=== PATIENT | male | born 1960 | race African-American/Black ===

== ENCOUNTER 2023-05-14 19:49 | Inpatient (IN) | payer OTHER ==
[2023-05-14 20:42] VITALS: BMI 21.1
[2023-05-14] MEDS ORDERED: BENZOCAINE/MENTHOL (CHLORASEPTIC ) LOZENGE MM PRN (23:00)
[2023-05-14] MEDS ORDERED: BENZONATATE 200 MG CAPSULE PO PRN (23:00)
[2023-05-14] MEDS ORDERED: BISMUTH SUBSALICYLATE 524 MG/30 ML PO PRN (23:00)
[2023-05-14] MEDS ORDERED: POLYETHYLENE GLYCOL (HEALTHYLAX) 3350 17 GM PACKET PO PRN (23:00)
[2023-05-14] MEDS ORDERED: ACETAMINOPHEN 325 MG TABLET (FP) PO PRN (23:00)
[2023-05-14] MEDS ORDERED: ONDANSETRON *ODT* 4 MG TABLET SL PRN (23:00)
[2023-05-14] MEDS ORDERED: NALOXONE HCL 0.4 MG/ML VIAL IM PRN ×2 (23:00→23:04)
[2023-05-14] MEDS ORDERED: IBUPROFEN 400 MG TABLET (FP) PO PRN (23:00)
[2023-05-14] MEDS ORDERED: guaiFENesin 600 MG TABLET.ER (FP) PO PRN (23:00)
[2023-05-14] MEDS ORDERED: DICYCLOMINE HCL 10 MG CAPSULE PO PRN (23:00)
[2023-05-14] MEDS ORDERED: NALOXONE HCL (KLOXXADO) 8 MG SPRAY NS PRN ×2 (23:00→23:04)
[2023-05-14] MEDS ORDERED: MAGNESIUM HYDROX 2400MG/30ML ORAL SUSPENSION 30 ML CUP PO PRN (23:00)
[2023-05-14] MEDS ORDERED: MAG HYDROX/AL HYDROX/SIMETH 30 ML UNIT-DOSE CUP PO PRN (23:00)
[2023-05-14] MEDS ORDERED: LOPERAMIDE HCL 2 MG CAPSULE PO PRN (23:00)
[2023-05-15] MEDS: INSULIN SLIDING SCALE (NOVOLOG) 1 VIAL SQ SCH ×2 (07:41→16:52)
[2023-05-15] MEDS: BACITRACIN ZINC 15 GM TUBE TOPICAL OINTMENT TP SCH ×2 (09:33→22:33)
[2023-05-15] MEDS: PRENATAL VITAMINS W/ FOLIC ACID TABLET (FP) PO SCH (09:33)
[2023-05-15] MEDS: hydrOXYzine PAMOATE 25 MG CAPSULE (FP) PO PRN (09:33)
[2023-05-15 10:46] LABS: CHLORIDE 107 mmol/L (98-107); POTASSIUM 4.4 mmol/L (3.5-5.1); SODIUM 140 mmol/L (136-145)
[2023-05-15 10:50] LABS: HEMATOCRIT 35.3 % (35.4-49); HEMOGLOBIN 11.1 GM/dL (11.7-16.9); MCH 23.1 pg (25.7-33.7); MCHC 31.5 g/dl (32.0-35.9); MEAN CELL VOLUME 73.5 fl (80-96); MEAN PLT VOLUME 8.7 fl (7.5-11.1); PLATELET COUNT 251 10^3/uL (134-434); RDW 17.3 % (11.9-15.9); WHITE BLOOD COUNT 2.6 K/mm3 (4.0-10.0)
[2023-05-15 10:51] LABS: ALBUMIN 2.6 g/dl (3.4-5.0); ANION GAP 3 mmol/L (4-13); BLOOD UREA NITROGEN 21.9 mg/dL (7-18); CO2 30 mmol/L (21-32)
[2023-05-15 10:53] LABS: CALCIUM 8.2 mg/dL (8.5-10.1)
[2023-05-15 10:54] LABS: CREATININE 1.1 mg/dL (0.55-1.3); SGOT/AST 43 U/L (15-37); SGPT/ALT 23 U/L (13-61)
[2023-05-15 10:56] LABS: BILIRUBIN,TOTAL 0.3 mg/dL (0.2-1)
[2023-05-15 10:57] LABS: ALK PHOS 63 U/L (45-117)
[2023-05-15 11:00] LABS: GLUCOSE,RANDOM 106 mg/dL (74-106)
[2023-05-15] MEDS ORDERED: cloNIDine HCL 0.1 MG TABLET PO PRN (12:42)
[2023-05-15] MEDS ORDERED: methaDONE HCL 10 MG TABLET (FOR DETOX USE ONLY) PO ONE (13:15)
[2023-05-15] MEDS ORDERED: diazePAM 5 MG TABLET PO PRN (13:35)
[2023-05-15] MEDS: THIAMINE HCL 100 MG TABLET (FP) PO SCH (22:28)
[2023-05-15] MEDS: PHENobarbital 30 MG TABLET PO SCH (22:28)
[2023-05-15] MEDS: MELATONIN 5 MG TABLETS PO SCH (22:29)
[2023-05-16] MEDS: INSULIN SLIDING SCALE (NOVOLOG) 1 VIAL SQ SCH ×2 (07:48→17:43)
[2023-05-16] MEDS: PHENobarbital 30 MG TABLET PO SCH ×2 (10:17→22:24)
[2023-05-16] MEDS: PRENATAL VITAMINS W/ FOLIC ACID TABLET (FP) PO SCH (10:17)
[2023-05-16] MEDS: amLODIPine BESYLATE 5 MG TABLET (FP) PO SCH (10:19)
[2023-05-16] MEDS: BACITRACIN ZINC 15 GM TUBE TOPICAL OINTMENT TP SCH ×2 (10:20→22:23)
[2023-05-16] MEDS: IBUPROFEN 600 MG TABLET (FP) PO PRN (10:45)
[2023-05-16] MEDS: hydrOXYzine PAMOATE 25 MG CAPSULE (FP) PO PRN ×2 (17:45→20:32)
[2023-05-16] MEDS: METHOCARBAMOL 500 MG TABLET PO PRN (20:32)
[2023-05-16] MEDS: MELATONIN 5 MG TABLETS PO SCH (22:23)
[2023-05-16] MEDS: THIAMINE HCL 100 MG TABLET (FP) PO SCH (22:26)
[2023-05-17] MEDS: INSULIN SLIDING SCALE (NOVOLOG) 1 VIAL SQ SCH (05:59)
[2023-05-17] MEDS ORDERED: methaDONE HCL 10 MG TABLET (FOR DETOX USE ONLY) PO ONE (10:00)
[2023-05-17] MEDS: PHENobarbital 30 MG TABLET PO SCH ×2 (10:24→22:04)
[2023-05-17] MEDS: amLODIPine BESYLATE 5 MG TABLET (FP) PO SCH (10:24)
[2023-05-17] MEDS: BACITRACIN 0.9 GM PACKET TP SCH ×2 (10:24→22:03)
[2023-05-17] MEDS: PRENATAL VITAMINS W/ FOLIC ACID TABLET (FP) PO SCH (10:24)
[2023-05-17] MEDS ORDERED: INSULIN SLIDING SCALE (NOVOLOG) 1 VIAL SQ SCH (16:30)
[2023-05-17] MEDS: THIAMINE HCL 100 MG TABLET (FP) PO SCH (22:03)
[2023-05-17] MEDS: MELATONIN 5 MG TABLETS PO SCH (22:04)
[2023-05-18] MEDS: INSULIN SLIDING SCALE (NOVOLOG) 1 VIAL SQ SCH (06:46)
[2023-05-18] MEDS: METHOCARBAMOL 500 MG TABLET PO PRN ×2 (09:59→22:30)
[2023-05-18] MEDS: BACITRACIN 0.9 GM PACKET TP SCH ×2 (10:00→22:30)
[2023-05-18] MEDS: amLODIPine BESYLATE 5 MG TABLET (FP) PO SCH (10:00)
[2023-05-18] MEDS: PRENATAL VITAMINS W/ FOLIC ACID TABLET (FP) PO SCH (10:01)
[2023-05-18] MEDS: PHENobarbital 30 MG TABLET PO SCH ×2 (10:01→22:30)
[2023-05-18] MEDS: hydrOXYzine PAMOATE 25 MG CAPSULE (FP) PO PRN (10:01)
[2023-05-18] MEDS: MELATONIN 5 MG TABLETS PO SCH (22:30)
[2023-05-18] MEDS: THIAMINE HCL 100 MG TABLET (FP) PO SCH (22:30)
[2023-05-19] MEDS: IBUPROFEN 600 MG TABLET (FP) PO PRN ×3 (05:27→17:41)
[2023-05-19] MEDS: INSULIN SLIDING SCALE (NOVOLOG) 1 VIAL SQ SCH (06:19)
[2023-05-19] MEDS: METHOCARBAMOL 500 MG TABLET PO PRN ×3 (06:36→22:23)
[2023-05-19] MEDS: BACITRACIN 0.9 GM PACKET TP SCH ×2 (09:59→22:23)
[2023-05-19] MEDS: PRENATAL VITAMINS W/ FOLIC ACID TABLET (FP) PO SCH (10:00)
[2023-05-19] MEDS: hydrOXYzine PAMOATE 25 MG CAPSULE (FP) PO PRN (10:00)
[2023-05-19] MEDS: amLODIPine BESYLATE 5 MG TABLET (FP) PO SCH (10:00)
[2023-05-19] MEDS ORDERED: methaDONE HCL 10 MG TABLET (FOR DETOX USE ONLY) PO ONE (10:00)
[2023-05-19] MEDS: PHENobarbital 30 MG TABLET PO SCH ×2 (10:00→22:23)
[2023-05-19] MEDS: THIAMINE HCL 100 MG TABLET (FP) PO SCH (22:23)
[2023-05-19] MEDS: MELATONIN 5 MG TABLETS PO SCH (22:26)
[2023-05-20] MEDS: IBUPROFEN 600 MG TABLET (FP) PO PRN (05:34)
[2023-05-20] MEDS: METHOCARBAMOL 500 MG TABLET PO PRN (05:35)
[2023-05-20] MEDS: INSULIN SLIDING SCALE (NOVOLOG) 1 VIAL SQ SCH (06:47)
[2023-05-20 09:20] VITALS: BP 139/72; PULSE 88; RESP 16; TEMP 98.2
[2023-05-20] MEDS: PRENATAL VITAMINS W/ FOLIC ACID TABLET (FP) PO SCH (10:18)
[2023-05-20] MEDS: BACITRACIN 0.9 GM PACKET TP SCH (10:20)
[2023-05-20] MEDS: PHENobarbital 30 MG TABLET PO SCH (10:20)
[2023-05-20] MEDS: amLODIPine BESYLATE 5 MG TABLET (FP) PO SCH (10:20)
== END 2023-05-20 11:35 | disposition other institution (70) | DRG 773 ==
LOC: YASAS 19:49 → Y6N 23:31
PROVIDERS: ADMIT Allergy & Immunology; ATTEND Surgery
PROC: HZ2ZZZZ Detoxification Services for Substance Abuse Treatment (ICD-10-PCS; principal; 2023-05-14)
DX: F11.23 Opioid dependence with withdrawal (principal); F14.20 Cocaine dependence, uncomplicated; F31.9 Bipolar disorder, unspecified; F19.280 Other psychoactive substance dependence with psychoactive substance-induced anxiety disorder; E11.9 Type 2 diabetes mellitus without complications; G40.909 Epilepsy, unspecified, not intractable, without status epilepticus; I10 Essential (primary) hypertension; R79.89 Other specified abnormal findings of blood chemistry; Z85.46 Personal history of malignant neoplasm of prostate; Z87.891 Personal history of nicotine dependence; Z99.89 Dependence on other enabling machines and devices; Z28.310 Unvaccinated for COVID-19; Z28.9 Immunization not carried out for unspecified reason; Z88.8 Allergy status to other drugs, medicaments and biological substances
CPT/HCPCS: 36415; 80053; 80307; 82962; 83036; 85027; 86780; 87635; 87811; 93005; 93010

== ENCOUNTER 2023-05-20 11:58 | Inpatient (IN) | payer OTHER ==
[2023-05-20] MEDS ORDERED: guaiFENesin 600 MG TABLET.ER (FP) PO PRN (13:15)
[2023-05-20] MEDS ORDERED: BENZONATATE 200 MG CAPSULE PO PRN (13:15)
[2023-05-20] MEDS ORDERED: COLLOIDAL OATMEAL 1 BAR EACH TP PRN (13:15)
[2023-05-20] MEDS ORDERED: LOPERAMIDE HCL 2 MG CAPSULE PO PRN (13:15)
[2023-05-20] MEDS ORDERED: IBUPROFEN 400 MG TABLET (FP) PO PRN (13:15)
[2023-05-20] MEDS ORDERED: hydrOXYzine PAMOATE 25 MG CAPSULE (FP) PO PRN (13:15)
[2023-05-20] MEDS ORDERED: ACETAMINOPHEN 325 MG TABLET (FP) PO PRN (13:15)
[2023-05-20] MEDS ORDERED: POLYETHYLENE GLYCOL (HEALTHYLAX) 3350 17 GM PACKET PO PRN (13:15)
[2023-05-20] MEDS ORDERED: BENZOCAINE/MENTHOL (CHLORASEPTIC ) LOZENGE MM PRN (13:15)
[2023-05-20] MEDS ORDERED: NALOXONE HCL 0.4 MG/ML VIAL IVPUSH PRN (13:15)
[2023-05-20] MEDS ORDERED: MAG HYDROX/AL HYDROX/SIMETH 30 ML UNIT-DOSE CUP PO PRN (13:15)
[2023-05-20] MEDS ORDERED: NALOXONE HCL (KLOXXADO) 8 MG SPRAY NS PRN (13:15)
[2023-05-20] MEDS ORDERED: MAGNESIUM HYDROX 2400MG/30ML ORAL SUSPENSION 30 ML CUP PO PRN (13:15)
[2023-05-20] MEDS: MELATONIN 5 MG TABLETS PO SCH (21:37)
[2023-05-20] MEDS: THIAMINE HCL 100 MG TABLET (FP) PO SCH (21:37)
[2023-05-20] MEDS: BACITRACIN 0.9 GM PACKET TP SCH (21:37)
[2023-05-20] MEDS: IBUPROFEN 600 MG TABLET (FP) PO PRN (21:38)
[2023-05-20] MEDS: METHOCARBAMOL 500 MG TABLET PO PRN (21:38)
[2023-05-20] MEDS: PHENobarbital 30 MG TABLET PO SCH (21:40)
[2023-05-20] MEDS ORDERED: PHENobarbital 15 MG TABLET PO SCH (22:00)
[2023-05-21] MEDS ORDERED: PHENobarbital 15 MG TABLET PO SCH (10:00)
[2023-05-21] MEDS: PRENATAL VITAMINS W/ FOLIC ACID TABLET (FP) PO SCH (10:29)
[2023-05-21] MEDS: amLODIPine BESYLATE 5 MG TABLET (FP) PO SCH (10:30)
[2023-05-21] MEDS: BACITRACIN 0.9 GM PACKET TP SCH ×2 (10:30→21:00)
[2023-05-21] MEDS: PHENobarbital 30 MG TABLET PO SCH ×2 (10:30→21:00)
[2023-05-21] MEDS: METHOCARBAMOL 500 MG TABLET PO PRN (20:58)
[2023-05-21] MEDS: THIAMINE HCL 100 MG TABLET (FP) PO SCH (21:00)
[2023-05-21] MEDS: MELATONIN 5 MG TABLETS PO SCH (21:00)
[2023-05-22] MEDS: amLODIPine BESYLATE 5 MG TABLET (FP) PO SCH (10:08)
[2023-05-22] MEDS: PRENATAL VITAMINS W/ FOLIC ACID TABLET (FP) PO SCH (10:08)
[2023-05-22] MEDS: PHENobarbital 30 MG TABLET PO SCH ×2 (10:09→21:22)
[2023-05-22] MEDS: BACITRACIN 0.9 GM PACKET TP SCH ×2 (10:10→21:23)
[2023-05-22] MEDS: IBUPROFEN 600 MG TABLET (FP) PO PRN (10:11)
[2023-05-22] MEDS: GABAPENTIN 100 MG CAPSULE PO SCH ×2 (10:36→21:22)
[2023-05-22] MEDS: THIAMINE HCL 100 MG TABLET (FP) PO SCH (21:23)
[2023-05-22] MEDS: MELATONIN 5 MG TABLETS PO SCH (21:23)
[2023-05-23] MEDS: PHENobarbital 30 MG TABLET PO SCH ×2 (09:00→21:18)
[2023-05-23] MEDS: GABAPENTIN 100 MG CAPSULE PO SCH ×2 (09:00→21:18)
[2023-05-23] MEDS: amLODIPine BESYLATE 5 MG TABLET (FP) PO SCH (09:00)
[2023-05-23] MEDS: PRENATAL VITAMINS W/ FOLIC ACID TABLET (FP) PO SCH (09:01)
[2023-05-23] MEDS: BACITRACIN 0.9 GM PACKET TP SCH ×2 (09:03→21:19)
[2023-05-23] MEDS: FERROUS SO4 325 MG TABLET (FP) PO SCH (09:18)
[2023-05-23 11:09] LABS: URINE APPEARANCE CLEAR; URINE BILIRUBIN NEGATIVE (NEGATIVE); URINE COLOR YELLOW; URINE GLUCOSE (UA) NEGATIVE (NEGATIVE); URINE KETONE NEGATIVE (NEGATIVE); URINE LEUK ESTERASE NEGATIVE (NEGATIVE); URINE NITRITE NEGATIVE (NEGATIVE); URINE PROTEIN NEGATIVE (NEGATIVE); URINE UROBILINOGEN 0.2 mg/dL (0.2-1.0)
[2023-05-23] MEDS: MELATONIN 5 MG TABLETS PO SCH (21:19)
[2023-05-23] MEDS: THIAMINE HCL 100 MG TABLET (FP) PO SCH (21:19)
[2023-05-23] MEDS: METHOCARBAMOL 500 MG TABLET PO PRN (21:21)
[2023-05-24] MEDS: PHENobarbital 30 MG TABLET PO SCH ×2 (10:12→21:21)
[2023-05-24] MEDS: PRENATAL VITAMINS W/ FOLIC ACID TABLET (FP) PO SCH (10:12)
[2023-05-24] MEDS: GABAPENTIN 100 MG CAPSULE PO SCH ×2 (10:12→21:21)
[2023-05-24] MEDS: BACITRACIN 0.9 GM PACKET TP SCH ×2 (10:12→21:22)
[2023-05-24] MEDS: amLODIPine BESYLATE 5 MG TABLET (FP) PO SCH (10:12)
[2023-05-24] MEDS: FERROUS SO4 325 MG TABLET (FP) PO SCH (10:12)
[2023-05-24] MEDS: METHOCARBAMOL 500 MG TABLET PO PRN ×2 (10:14→21:21)
[2023-05-24] MEDS: IBUPROFEN 600 MG TABLET (FP) PO PRN (10:16)
[2023-05-24] MEDS: MELATONIN 5 MG TABLETS PO SCH (21:21)
[2023-05-24] MEDS: THIAMINE HCL 100 MG TABLET (FP) PO SCH (21:21)
[2023-05-25] MEDS: PRENATAL VITAMINS W/ FOLIC ACID TABLET (FP) PO SCH (09:29)
[2023-05-25] MEDS: FERROUS SO4 325 MG TABLET (FP) PO SCH (09:29)
[2023-05-25] MEDS: GABAPENTIN 100 MG CAPSULE PO SCH ×2 (09:29→21:20)
[2023-05-25] MEDS: amLODIPine BESYLATE 5 MG TABLET (FP) PO SCH (09:32)
[2023-05-25] MEDS: BACITRACIN 0.9 GM PACKET TP SCH ×2 (09:32→21:21)
[2023-05-25] MEDS: PHENobarbital 30 MG TABLET PO SCH ×2 (09:32→21:20)
[2023-05-25] MEDS: IBUPROFEN 600 MG TABLET (FP) PO PRN (09:33)
[2023-05-25] MEDS: THIAMINE HCL 100 MG TABLET (FP) PO SCH (21:20)
[2023-05-25] MEDS: MELATONIN 5 MG TABLETS PO SCH (21:20)
[2023-05-25] MEDS: METHOCARBAMOL 500 MG TABLET PO PRN (21:20)
[2023-05-26] MEDS: PRENATAL VITAMINS W/ FOLIC ACID TABLET (FP) PO SCH (10:00)
[2023-05-26] MEDS: PHENobarbital 30 MG TABLET PO SCH ×2 (10:01→21:14)
[2023-05-26] MEDS: amLODIPine BESYLATE 5 MG TABLET (FP) PO SCH (10:03)
[2023-05-26] MEDS: FERROUS SO4 325 MG TABLET (FP) PO SCH (10:03)
[2023-05-26] MEDS: GABAPENTIN 100 MG CAPSULE PO SCH ×2 (10:03→21:13)
[2023-05-26] MEDS: BACITRACIN 0.9 GM PACKET TP SCH ×2 (10:04→21:14)
[2023-05-26] MEDS: SIMETHICONE 80 MG TAB.CHEW (FP) PO PRN (10:15)
[2023-05-26] MEDS ORDERED: BUPRENORPHINE HCL 150 MCG, BUPRENORPHINE HCL 75 MCG BC PRN (10:49)
[2023-05-26] MEDS ORDERED: BUPRENORPHINE HCL 150 MCG, BUPRENORPHINE HCL 75 MCG BC ONE (10:49)
[2023-05-26] MEDS ORDERED: cloNIDine HCL 0.1 MG TABLET PO ONE (10:49)
[2023-05-26] MEDS ORDERED: BENZONATATE 200 MG CAPSULE PO PRN (10:53)
[2023-05-26] MEDS ORDERED: DICYCLOMINE HCL 10 MG CAPSULE PO PRN (10:53)
[2023-05-26] MEDS ORDERED: ONDANSETRON *ODT* 4 MG TABLET SL PRN (10:53)
[2023-05-26] MEDS ORDERED: BISMUTH SUBSALICYLATE 262 MG/15 ML BTL PO PRN (10:53)
[2023-05-26] MEDS ORDERED: cloNIDine HCL 0.1 MG TABLET PO PRN (14:49)
[2023-05-26] MEDS: THIAMINE HCL 100 MG TABLET (FP) PO SCH (21:12)
[2023-05-26] MEDS: MELATONIN 5 MG TABLETS PO SCH (21:13)
[2023-05-27] MEDS ORDERED: BUPRENORPHINE HCL 150 MCG, BUPRENORPHINE HCL 75 MCG BC PRN
[2023-05-27] MEDS: BUPRENORPHINE HCL 150 MCG, BUPRENORPHINE HCL 75 MCG BC SCH ×2 (07:02→17:21)
[2023-05-27] MEDS: IBUPROFEN 600 MG TABLET (FP) PO PRN ×2 (07:22→22:12)
[2023-05-27] MEDS: PRENATAL VITAMINS W/ FOLIC ACID TABLET (FP) PO SCH (10:04)
[2023-05-27] MEDS: FERROUS SO4 325 MG TABLET (FP) PO SCH (10:05)
[2023-05-27] MEDS: GABAPENTIN 100 MG CAPSULE PO SCH ×2 (10:05→22:10)
[2023-05-27] MEDS: amLODIPine BESYLATE 5 MG TABLET (FP) PO SCH (10:05)
[2023-05-27] MEDS: PHENobarbital 30 MG TABLET PO SCH ×2 (10:06→22:10)
[2023-05-27] MEDS: BACITRACIN 0.9 GM PACKET TP SCH ×2 (10:06→22:10)
[2023-05-27] MEDS: SIMETHICONE 80 MG TAB.CHEW (FP) PO PRN (13:04)
[2023-05-27] MEDS: THIAMINE HCL 100 MG TABLET (FP) PO SCH (22:10)
[2023-05-27] MEDS: SUVOREXANT 10 MG TABLET PO PRN (22:11)
[2023-05-28] MEDS: BUPRENORPHINE HCL 450 MCG FILM BC SCH ×2 (06:40→17:52)
[2023-05-28] MEDS: GABAPENTIN 100 MG CAPSULE PO SCH ×2 (09:10→21:34)
[2023-05-28] MEDS: FERROUS SO4 325 MG TABLET (FP) PO SCH (09:10)
[2023-05-28] MEDS: amLODIPine BESYLATE 5 MG TABLET (FP) PO SCH (09:11)
[2023-05-28] MEDS: PRENATAL VITAMINS W/ FOLIC ACID TABLET (FP) PO SCH (09:11)
[2023-05-28] MEDS: BACITRACIN 0.9 GM PACKET TP SCH ×2 (09:11→21:34)
[2023-05-28] MEDS: PHENobarbital 30 MG TABLET PO SCH ×2 (09:11→21:34)
[2023-05-28] MEDS: IBUPROFEN 600 MG TABLET (FP) PO PRN (09:13)
[2023-05-28] MEDS: SUVOREXANT 10 MG TABLET PO PRN (21:34)
[2023-05-28] MEDS: THIAMINE HCL 100 MG TABLET (FP) PO SCH (21:35)
[2023-05-29] MEDS: BUPRENORPHINE/NALOXONE 4 MG/1 MG FILM PACKET SL SCH ×2 (06:56→19:01)
[2023-05-29 07:01] VITALS: TEMP 97.1
[2023-05-29 09:18] VITALS: BP 119/99; PULSE 106; RESP 18
[2023-05-29] MEDS: BACITRACIN 0.9 GM PACKET TP SCH (09:49)
[2023-05-29] MEDS: GABAPENTIN 100 MG CAPSULE PO SCH (09:49)
[2023-05-29] MEDS: FERROUS SO4 325 MG TABLET (FP) PO SCH (09:49)
[2023-05-29] MEDS: amLODIPine BESYLATE 5 MG TABLET (FP) PO SCH (09:49)
[2023-05-29] MEDS: PHENobarbital 30 MG TABLET PO SCH (09:49)
[2023-05-29] MEDS: PRENATAL VITAMINS W/ FOLIC ACID TABLET (FP) PO SCH (09:49)
== END 2023-05-29 21:34 | disposition short-term general hospital (02) | DRG 772 ==
LOC: YASAS 11:58 → Y3W 12:00
PROVIDERS: ADMIT Allergy & Immunology; ATTEND Psychiatry & Neurology Pain Medicine
PROC: HZ42ZZZ Group Counseling for Substance Abuse Treatment, Cognitive-Behavioral (ICD-10-PCS; principal; 2023-05-20)
DX: F11.20 Opioid dependence, uncomplicated (principal); F31.9 Bipolar disorder, unspecified; F20.9 Schizophrenia, unspecified; D64.9 Anemia, unspecified; I10 Essential (primary) hypertension; E11.9 Type 2 diabetes mellitus without complications; Z79.84 Long term (current) use of oral hypoglycemic drugs; L03.114 Cellulitis of left upper limb; M54.31 Sciatica, right side; M54.32 Sciatica, left side; Z85.46 Personal history of malignant neoplasm of prostate; Z99.89 Dependence on other enabling machines and devices
CPT/HCPCS: 81003; 82962; 87086

== ENCOUNTER 2023-05-29 11:53 | Inpatient (IN) | payer OTHER ==
[2023-05-29 12:19] VITALS: BMI 23.8
[2023-05-29] MEDS ORDERED: VANCOMYCIN 1 GM PREMIX - 1 GM/200 ML BAG IVPB ONE (13:15)
[2023-05-29] MEDS ORDERED: PIPERACILLIN/TAZOB 4.5 GM 4.5 GM in DEXTROSE 5%-WATER 100 ML IVPB ONE (13:15)
[2023-05-29 14:47] LABS: BASO % 0.8 % (0-2.0); EOS % 2.1 % (0-4.5); HEMATOCRIT 35.1 % (35.4-49); HEMOGLOBIN 10.9 GM/dL (11.7-16.9); MCH 23.3 pg (25.7-33.7); MCHC 30.9 g/dl (32.0-35.9); MEAN CELL VOLUME 75.3 fl (80-96); MEAN PLT VOLUME 7.6 fl (7.5-11.1); MONO % 12.6 % (3.8-10.2); NEUT % 65.5 % (42.8-82.8); PLATELET COUNT 306 10^3/uL (134-434); RBC 4.67 M/mm3 (4.00-5.60); RDW 18.4 % (11.9-15.9); WHITE BLOOD COUNT 5.7 K/mm3 (4.0-10.0)
[2023-05-29 15:07] LABS: POTASSIUM 4.5 mmol/L (3.5-5.1)
[2023-05-29 15:09] LABS: ALBUMIN 3.3 g/dl (3.4-5.0); CALCIUM 8.7 mg/dL (8.5-10.1)
[2023-05-29 15:12] LABS: CREATININE 0.8 mg/dL (0.55-1.3)
[2023-05-29 15:14] LABS: BILIRUBIN,TOTAL 0.4 mg/dL (0.2-1); TOT PROT 7.3 g/dl (6.4-8.2)
[2023-05-29 15:43] LABS: ERYTHROCYTE SEDIMENTATION RATE 13 mm/hr (0-20)
[2023-05-29] MEDS ORDERED: PIPERACILLIN/TAZOB 4.5 GM 4.5 GM/100 ML BAG IVPB ONE (16:33)
[2023-05-29 16:58] LABS: COCAINE, UR NEGATIVE (NEGATIVE)
[2023-05-29 16:59] LABS: METHADONE, UR NEGATIVE (NEGATIVE); OPIATES, URI NEGATIVE (NEGATIVE)
[2023-05-29] MEDS ORDERED: VANCOMYCIN 1 GRAM (PRE-DOCKED) 1,000 MG/250 ML BAG IVPB ONE (17:00)
[2023-05-29 17:01] LABS: PHENCYCLIDINE,URINE NEGATIVE (NEGATIVE); URINE AMPHETAMINES NEGATIVE (NEGATIVE); URINE BARBITURATES POSITIVE (NEGATIVE); URINE BENZODIAZEPINES NEGATIVE (NEGATIVE)
[2023-05-29] MEDS ORDERED: ACETAMINOPHEN 325 MG TABLET (FP) PO PRN (17:54)
[2023-05-29] MEDS ORDERED: MELATONIN 5 MG TABLETS PO PRN (17:54)
[2023-05-29] MEDS ORDERED: BUPRENORPHINE/NALOXONE 2 MG/0.5 MG FILM PACKET SL SCH (18:00)
[2023-05-29] MEDS ORDERED: BUPRENORPHINE/NALOXONE 2 MG/0.5 MG FILM PACKET ONE (19:14)
[2023-05-29] MEDS ORDERED: GABAPENTIN 100 MG CAPSULE ONE (22:12)
[2023-05-29] MEDS ORDERED: PIPERACILLIN/TAZOB 3.375 GM 3.375 GM/50 ML BAG IVPB ONE (22:12)
[2023-05-29] MEDS: PIPERACILLIN/TAZOB 3.375 GM 3.375 GM in DEXTROSE 5%-WATER - 50 ML IVPB SCH (22:23)
[2023-05-29] MEDS: GABAPENTIN 100 MG CAPSULE PO SCH (22:23)
[2023-05-29] MEDS ORDERED: PHENobarbital 30 MG TABLET ONE (22:26)
[2023-05-29] MEDS: PHENobarbital 30 MG TABLET PO SCH (22:39)
[2023-05-30] MEDS ORDERED: VANCOMYCIN/WATER FOR INJ (PEG) 1,000 MG/200 ML BAG IVPB SCH (05:00)
[2023-05-30] MEDS ORDERED: ACETAMINOPHEN 325 MG TABLET (FP) ONE (05:30)
[2023-05-30 08:44] VITALS: RESP 18
[2023-05-30] MEDS: ENOXAPARIN NA (PORCINE) 40 MG/0.4 ML DISP.SYRIN SQ SCH (11:05)
[2023-05-30] MEDS: GABAPENTIN 100 MG CAPSULE PO SCH ×2 (11:06→21:36)
[2023-05-30] MEDS: amLODIPine BESYLATE 5 MG TABLET (FP) PO SCH (11:06)
[2023-05-30] MEDS ORDERED: BUPRENORPHINE/NALOXONE 2 MG/0.5 MG FILM PACKET SL SCH (11:45)
[2023-05-30] MEDS: PHENobarbital 30 MG TABLET PO SCH ×2 (12:29→21:36)
[2023-05-30] MEDS: PIPERACILLIN/TAZOB 3.375 GM 3.375 GM in DEXTROSE 5%-WATER - 50 ML IVPB SCH ×2 (12:35→18:56)
[2023-05-30] MEDS ORDERED: VANCOMYCIN 1 GRAM (PRE-DOCKED) 1,000 MG/250 ML BAG IVPB SCH (16:00)
[2023-05-30] MEDS: VANCOMYCIN/WATER FOR INJ (PEG) 1,000 MG/200 ML BAG IVPB SCH (16:33)
[2023-05-30] MEDS ORDERED: FUROSEMIDE 40 MG TABLET (FP) PO ONE (17:13)
[2023-05-30] MEDS: INSULIN SLIDING SCALE (NOVOLOG) 1 VIAL SQ SCH (21:44)
[2023-05-31] MEDS: PIPERACILLIN/TAZOB 3.375 GM 3.375 GM in DEXTROSE 5%-WATER - 50 ML IVPB SCH ×4 (01:25→18:02)
[2023-05-31] MEDS: VANCOMYCIN/WATER FOR INJ (PEG) 1,000 MG/200 ML BAG IVPB SCH ×2 (04:15→17:06)
[2023-05-31] MEDS: BUPRENORPHINE/NALOXONE 2 MG/0.5 MG FILM PACKET SL SCH ×2 (05:08→17:24)
[2023-05-31] MEDS: INSULIN SLIDING SCALE (NOVOLOG) 1 VIAL SQ SCH ×4 (07:39→21:27)
[2023-05-31] MEDS: ENOXAPARIN NA (PORCINE) 40 MG/0.4 ML DISP.SYRIN SQ SCH (10:17)
[2023-05-31] MEDS: FUROSEMIDE 20 MG TABLET (FP) PO SCH (10:18)
[2023-05-31] MEDS: amLODIPine BESYLATE 5 MG TABLET (FP) PO SCH (10:18)
[2023-05-31] MEDS: GABAPENTIN 100 MG CAPSULE PO SCH ×2 (10:18→21:25)
[2023-05-31] MEDS: PHENobarbital 30 MG TABLET PO SCH ×2 (10:18→21:24)
[2023-05-31 10:56] LABS: POTASSIUM 4.7 mmol/L (3.5-5.1)
[2023-05-31 10:59] LABS: CALCIUM 8.4 mg/dL (8.5-10.1)
[2023-05-31 11:00] LABS: BLOOD UREA NITROGEN 17.6 mg/dL (7-18)
[2023-05-31 11:03] LABS: CREATININE 0.9 mg/dL (0.55-1.3)
[2023-05-31 13:31] LABS: HIV INTERPRETATION NEGATIVE (NEGATIVE)
[2023-06-01] MEDS: PIPERACILLIN/TAZOB 3.375 GM 3.375 GM in DEXTROSE 5%-WATER - 50 ML IVPB SCH ×2 (01:46→10:22)
[2023-06-01] MEDS: VANCOMYCIN/WATER FOR INJ (PEG) 1,000 MG/200 ML BAG IVPB SCH (04:02)
[2023-06-01] MEDS: BUPRENORPHINE/NALOXONE 2 MG/0.5 MG FILM PACKET SL SCH ×2 (06:05→17:14)
[2023-06-01] MEDS: INSULIN SLIDING SCALE (NOVOLOG) 1 VIAL SQ SCH ×5 (06:11→22:14)
[2023-06-01 09:26] LABS: BASO % 1.4 % (0-2.0); EOS % 6.7 % (0-4.5); HEMOGLOBIN 10.8 GM/dL (11.7-16.9); LYMPH % 33.5 % (8-40); MCH 23.5 pg (25.7-33.7); MEAN CELL VOLUME 75.7 fl (80-96); MEAN PLT VOLUME 7.4 fl (7.5-11.1); MONO % 16.3 % (3.8-10.2); NEUT % 42.1 % (42.8-82.8); PLATELET COUNT 339 10^3/uL (134-434); RBC 4.62 M/mm3 (4.00-5.60); RDW 18.3 % (11.9-15.9); WHITE BLOOD COUNT 3.1 K/mm3 (4.0-10.0)
[2023-06-01 09:42] LABS: POTASSIUM 4.7 mmol/L (3.5-5.1)
[2023-06-01 09:53] LABS: ALBUMIN 3.4 g/dl (3.4-5.0); BLOOD UREA NITROGEN 22.4 mg/dL (7-18); MAGNESIUM 2.1 mg/dL (1.8-2.4)
[2023-06-01 09:56] LABS: PHOSPHOROUS 3.8 mg/dL (2.5-4.9)
[2023-06-01 09:57] LABS: BILIRUBIN,TOTAL 0.5 mg/dL (0.2-1); TOT PROT 7.7 g/dl (6.4-8.2)
[2023-06-01 10:09] LABS: ANISOCYTOSIS 0; MACROCYTOSIS 0
[2023-06-01] MEDS: PHENobarbital 30 MG TABLET PO SCH ×2 (10:22→21:42)
[2023-06-01] MEDS: ENOXAPARIN NA (PORCINE) 40 MG/0.4 ML DISP.SYRIN SQ SCH (10:22)
[2023-06-01] MEDS: GABAPENTIN 100 MG CAPSULE PO SCH ×2 (10:23→21:42)
[2023-06-01] MEDS: FUROSEMIDE 20 MG TABLET (FP) PO SCH (10:23)
[2023-06-01] MEDS: amLODIPine BESYLATE 5 MG TABLET (FP) PO SCH (10:23)
[2023-06-01] MEDS: AMOX TR/POT CLAV 875MG/125MG TABLETS (FP) PO SCH (17:14)
[2023-06-02] MEDS: BUPRENORPHINE/NALOXONE 2 MG/0.5 MG FILM PACKET SL SCH (05:13)
[2023-06-02] MEDS: INSULIN SLIDING SCALE (NOVOLOG) 1 VIAL SQ SCH ×2 (06:58→11:55)
[2023-06-02] MEDS: GABAPENTIN 100 MG CAPSULE PO SCH (10:34)
[2023-06-02] MEDS: PHENobarbital 30 MG TABLET PO SCH (10:34)
[2023-06-02] MEDS: FUROSEMIDE 20 MG TABLET (FP) PO SCH (10:34)
[2023-06-02] MEDS: amLODIPine BESYLATE 5 MG TABLET (FP) PO SCH (10:34)
[2023-06-02] MEDS: ENOXAPARIN NA (PORCINE) 40 MG/0.4 ML DISP.SYRIN SQ SCH (10:34)
[2023-06-02] MEDS: AMOX TR/POT CLAV 875MG/125MG TABLETS (FP) PO SCH (10:34)
[2023-06-02 15:47] VITALS: BP 154/78; PULSE 91; TEMP 98
== END 2023-06-02 16:50 | disposition other institution (70) | DRG 383 ==
LOC: JER 11:53 → JERBED 16:45 → J5S 05-30 09:43
PROVIDERS: ADMIT Internal Medicine
DX: L03.114 Cellulitis of left upper limb (principal); F11.20 Opioid dependence, uncomplicated; I10 Essential (primary) hypertension; E11.9 Type 2 diabetes mellitus without complications; G40.909 Epilepsy, unspecified, not intractable, without status epilepticus; M54.30 Sciatica, unspecified side
CPT/HCPCS: 36415; 73201-TC-RT; 80048; 80053; 80307; 82962; 83036; 83735; 84100; 85025; 85651; 86140; 87040; 87070; 87186; 87205; 87389; 93005; 93010; 93306-TC; 93971-TC; 99285-25; G0480; Q9967

== ENCOUNTER 2023-06-02 18:17 | Inpatient (IN) | payer OTHER ==
[2023-06-02 20:28] VITALS: BMI 24.3
[2023-06-02] MEDS ORDERED: MELATONIN 5 MG TABLETS PO PRN (20:40)
[2023-06-02] MEDS ORDERED: P-EPHED 60MG/TRIPROLIDI 2.5MG TABLET PO PRN (20:43)
[2023-06-02] MEDS ORDERED: IBUPROFEN 400 MG TABLET (FP) PO PRN (20:43)
[2023-06-02] MEDS ORDERED: MAGNESIUM HYDROX 2400MG/30ML ORAL SUSPENSION 30 ML CUP PO PRN (20:43)
[2023-06-02] MEDS ORDERED: ACETAMINOPHEN 325 MG TABLET (FP) PO PRN (20:43)
[2023-06-02] MEDS ORDERED: guaiFENesin 600 MG TABLET.ER (FP) PO PRN (20:43)
[2023-06-02] MEDS ORDERED: COLLOIDAL OATMEAL 1 BAR EACH TP PRN (20:43)
[2023-06-02] MEDS ORDERED: LOPERAMIDE HCL 2 MG CAPSULE PO PRN (20:43)
[2023-06-02] MEDS ORDERED: NALOXONE HCL (KLOXXADO) 8 MG SPRAY NS PRN (20:43)
[2023-06-02] MEDS ORDERED: BENZONATATE 200 MG CAPSULE PO PRN (20:43)
[2023-06-02] MEDS ORDERED: BENZOCAINE/MENTHOL (CHLORASEPTIC ) LOZENGE MM PRN (20:43)
[2023-06-02] MEDS ORDERED: POLYETHYLENE GLYCOL (HEALTHYLAX) 3350 17 GM PACKET PO PRN (20:43)
[2023-06-02] MEDS ORDERED: MAG HYDROX/AL HYDROX/SIMETH 30 ML UNIT-DOSE CUP PO PRN (20:43)
[2023-06-02] MEDS ORDERED: IBUPROFEN 600 MG TABLET (FP) PO PRN (20:43)
[2023-06-02] MEDS ORDERED: NALOXONE HCL 0.4 MG/ML VIAL IVPUSH PRN (20:43)
[2023-06-02] MEDS ORDERED: CADEXOMER IODINE TP SCH (20:45)
[2023-06-02] MEDS ORDERED: PATIENT'S OWN MEDICATION (NON-FORMULARY) (Polyhexam Biguan/Gauze Bandage [Kerlix Amd Banda TP SCH (20:45)
[2023-06-02] MEDS ORDERED: BUPRENORPHINE/NALOXONE 4 MG/1 MG FILM PACKET ONE (21:58)
[2023-06-02] MEDS ORDERED: BUPRENORPHINE/NALOXONE 4 MG/1 MG FILM PACKET SL ONE (22:00)
[2023-06-02] MEDS: INSULIN SLIDING SCALE (NOVOLOG) 1 VIAL SQ SCH (22:11)
[2023-06-02] MEDS: PHENobarbital 30 MG TABLET PO SCH (23:17)
[2023-06-02] MEDS: THIAMINE HCL 100 MG TABLET (FP) PO SCH (23:17)
[2023-06-02] MEDS: GABAPENTIN 100 MG CAPSULE PO SCH (23:17)
[2023-06-02] MEDS: AMOX TR/POT CLAV 875MG/125MG TABLETS (FP) PO SCH (23:17)
[2023-06-02 23:37] VITALS: RESP 18
[2023-06-03] MEDS: BUPRENORPHINE/NALOXONE 4 MG/1 MG FILM PACKET SL SCH ×2 (06:47→18:31)
[2023-06-03] MEDS: INSULIN SLIDING SCALE (NOVOLOG) 1 VIAL SQ SCH ×4 (06:49→20:59)
[2023-06-03] MEDS: AMOX TR/POT CLAV 875MG/125MG TABLETS (FP) PO SCH ×2 (10:11→21:26)
[2023-06-03] MEDS: amLODIPine BESYLATE 5 MG TABLET (FP) PO SCH (10:11)
[2023-06-03] MEDS: GABAPENTIN 100 MG CAPSULE PO SCH ×2 (10:11→21:26)
[2023-06-03] MEDS: PHENobarbital 30 MG TABLET PO SCH ×2 (10:11→22:25)
[2023-06-03] MEDS: PRENATAL VITAMINS W/ FOLIC ACID TABLET (FP) PO SCH (10:11)
[2023-06-03] MEDS ORDERED: INSULIN (NOVOLOG) ASPART 100 UNITS/ML 10ML VIAL ONE ×3 (12:04→22:31)
[2023-06-03] MEDS: BACITRACIN 0.9 GM PACKET TP SCH ×2 (14:58→21:27)
[2023-06-03] MEDS: THIAMINE HCL 100 MG TABLET (FP) PO SCH (21:26)
[2023-06-03] MEDS: METHOCARBAMOL 500 MG TABLET PO PRN (21:28)
[2023-06-04] MEDS: BUPRENORPHINE/NALOXONE 4 MG/1 MG FILM PACKET SL SCH ×2 (06:55→18:06)
[2023-06-04] MEDS: INSULIN SLIDING SCALE (NOVOLOG) 1 VIAL SQ SCH ×4 (06:56→21:19)
[2023-06-04] MEDS: AMOX TR/POT CLAV 875MG/125MG TABLETS (FP) PO SCH ×2 (10:07→21:19)
[2023-06-04] MEDS: BACITRACIN 0.9 GM PACKET TP SCH ×2 (10:07→21:19)
[2023-06-04] MEDS: GABAPENTIN 100 MG CAPSULE PO SCH ×2 (10:07→21:19)
[2023-06-04] MEDS: PRENATAL VITAMINS W/ FOLIC ACID TABLET (FP) PO SCH (10:07)
[2023-06-04] MEDS: amLODIPine BESYLATE 5 MG TABLET (FP) PO SCH (10:07)
[2023-06-04] MEDS: PHENobarbital 30 MG TABLET PO SCH ×2 (10:07→22:09)
[2023-06-04] MEDS: THIAMINE HCL 100 MG TABLET (FP) PO SCH (21:19)
[2023-06-04] MEDS: METHOCARBAMOL 500 MG TABLET PO PRN (21:20)
[2023-06-05] MEDS: BUPRENORPHINE/NALOXONE 4 MG/1 MG FILM PACKET SL SCH ×2 (06:41→18:01)
[2023-06-05] MEDS: INSULIN SLIDING SCALE (NOVOLOG) 1 VIAL SQ SCH ×4 (06:55→21:19)
[2023-06-05] MEDS ORDERED: INSULIN (NOVOLOG) ASPART 100 UNITS/ML 10ML VIAL ONE (07:52)
[2023-06-05] MEDS: BACITRACIN 0.9 GM PACKET TP SCH ×2 (10:18→21:14)
[2023-06-05] MEDS: amLODIPine BESYLATE 5 MG TABLET (FP) PO SCH (10:18)
[2023-06-05] MEDS: AMOX TR/POT CLAV 875MG/125MG TABLETS (FP) PO SCH ×2 (10:18→21:14)
[2023-06-05] MEDS: GABAPENTIN 100 MG CAPSULE PO SCH ×2 (10:19→21:14)
[2023-06-05] MEDS: PRENATAL VITAMINS W/ FOLIC ACID TABLET (FP) PO SCH (10:19)
[2023-06-05] MEDS: PHENobarbital 30 MG TABLET PO SCH ×2 (11:08→21:15)
[2023-06-05] MEDS: METHOCARBAMOL 500 MG TABLET PO PRN (20:33)
[2023-06-05] MEDS: THIAMINE HCL 100 MG TABLET (FP) PO SCH (21:14)
[2023-06-06] MEDS ORDERED: INSULIN (NOVOLOG) ASPART 100 UNITS/ML 10ML VIAL ONE (04:03)
[2023-06-06] MEDS: INSULIN SLIDING SCALE (NOVOLOG) 1 VIAL SQ SCH ×4 (06:49→21:57)
[2023-06-06] MEDS: BUPRENORPHINE/NALOXONE 4 MG/1 MG FILM PACKET SL SCH ×2 (06:51→18:10)
[2023-06-06] MEDS: amLODIPine BESYLATE 5 MG TABLET (FP) PO SCH (09:24)
[2023-06-06] MEDS: FERROUS SO4 325 MG TABLET (FP) PO SCH (09:24)
[2023-06-06] MEDS: GABAPENTIN 100 MG CAPSULE PO SCH ×2 (09:24→21:57)
[2023-06-06] MEDS: AMOX TR/POT CLAV 875MG/125MG TABLETS (FP) PO SCH ×2 (09:24→21:56)
[2023-06-06] MEDS: BACITRACIN 0.9 GM PACKET TP SCH ×2 (09:25→21:56)
[2023-06-06] MEDS: PHENobarbital 30 MG TABLET PO SCH ×2 (09:25→21:57)
[2023-06-06] MEDS: PRENATAL VITAMINS W/ FOLIC ACID TABLET (FP) PO SCH (09:28)
[2023-06-06] MEDS: THIAMINE HCL 100 MG TABLET (FP) PO SCH (21:57)
[2023-06-06] MEDS: METHOCARBAMOL 500 MG TABLET PO PRN (22:01)
[2023-06-07] MEDS: BUPRENORPHINE/NALOXONE 4 MG/1 MG FILM PACKET SL SCH ×2 (06:23→18:37)
[2023-06-07] MEDS: INSULIN SLIDING SCALE (NOVOLOG) 1 VIAL SQ SCH ×4 (06:59→22:04)
[2023-06-07] MEDS: GABAPENTIN 100 MG CAPSULE PO SCH ×2 (09:18→21:49)
[2023-06-07] MEDS: amLODIPine BESYLATE 5 MG TABLET (FP) PO SCH (09:18)
[2023-06-07] MEDS: PRENATAL VITAMINS W/ FOLIC ACID TABLET (FP) PO SCH (09:18)
[2023-06-07] MEDS: AMOX TR/POT CLAV 875MG/125MG TABLETS (FP) PO SCH ×2 (09:18→21:49)
[2023-06-07] MEDS: FERROUS SO4 325 MG TABLET (FP) PO SCH (09:18)
[2023-06-07] MEDS: BACITRACIN 0.9 GM PACKET TP SCH ×2 (09:20→21:50)
[2023-06-07] MEDS: PHENobarbital 30 MG TABLET PO SCH ×2 (09:20→21:57)
[2023-06-07] MEDS: METHOCARBAMOL 500 MG TABLET PO PRN ×2 (09:22→22:06)
[2023-06-07] MEDS: THIAMINE HCL 100 MG TABLET (FP) PO SCH (21:49)
[2023-06-07] MEDS ORDERED: PHENobarbital 30 MG TABLET PO ONE (22:00)
[2023-06-08] MEDS: BUPRENORPHINE/NALOXONE 4 MG/1 MG FILM PACKET SL SCH ×2 (06:44→17:54)
[2023-06-08] MEDS: INSULIN SLIDING SCALE (NOVOLOG) 1 VIAL SQ SCH ×3 (06:54→16:47)
[2023-06-08] MEDS: BACITRACIN 0.9 GM PACKET TP SCH ×2 (10:07→21:22)
[2023-06-08] MEDS: amLODIPine BESYLATE 5 MG TABLET (FP) PO SCH (10:07)
[2023-06-08] MEDS: PRENATAL VITAMINS W/ FOLIC ACID TABLET (FP) PO SCH (10:07)
[2023-06-08] MEDS: PHENobarbital 30 MG TABLET PO SCH ×2 (10:07→22:13)
[2023-06-08] MEDS: AMOX TR/POT CLAV 875MG/125MG TABLETS (FP) PO SCH (10:07)
[2023-06-08] MEDS: GABAPENTIN 100 MG CAPSULE PO SCH ×2 (10:07→21:22)
[2023-06-08] MEDS: FERROUS SO4 325 MG TABLET (FP) PO SCH (10:07)
[2023-06-08] MEDS: THIAMINE HCL 100 MG TABLET (FP) PO SCH (21:22)
[2023-06-09] MEDS: BUPRENORPHINE/NALOXONE 4 MG/1 MG FILM PACKET SL SCH (07:21)
[2023-06-09] MEDS: INSULIN SLIDING SCALE (NOVOLOG) 1 VIAL SQ SCH (07:22)
[2023-06-09 07:30] VITALS: TEMP 98.1
[2023-06-09] MEDS: amLODIPine BESYLATE 5 MG TABLET (FP) PO SCH (10:01)
[2023-06-09] MEDS: PRENATAL VITAMINS W/ FOLIC ACID TABLET (FP) PO SCH (10:01)
[2023-06-09] MEDS: GABAPENTIN 100 MG CAPSULE PO SCH (10:01)
[2023-06-09] MEDS: FERROUS SO4 325 MG TABLET (FP) PO SCH (10:01)
[2023-06-09] MEDS: BACITRACIN 0.9 GM PACKET TP SCH (10:01)
[2023-06-09] MEDS: PHENobarbital 30 MG TABLET PO SCH (10:02)
[2023-06-09 10:48] VITALS: BP 121/74; PULSE 100
== END 2023-06-09 10:42 | disposition home or self-care (01) | DRG 772 ==
LOC: YASAS 18:17 → Y5N 22:42
PROVIDERS: ADMIT Allergy & Immunology; ATTEND Psychiatry & Neurology Pain Medicine
PROC: HZ42ZZZ Group Counseling for Substance Abuse Treatment, Cognitive-Behavioral (ICD-10-PCS; principal; 2023-06-02)
DX: F11.20 Opioid dependence, uncomplicated (principal); F14.20 Cocaine dependence, uncomplicated; F12.20 Cannabis dependence, uncomplicated; F31.9 Bipolar disorder, unspecified; D64.9 Anemia, unspecified; G40.909 Epilepsy, unspecified, not intractable, without status epilepticus; L03.114 Cellulitis of left upper limb; M41.9 Scoliosis, unspecified; M54.30 Sciatica, unspecified side; R60.0 Localized edema; Z99.89 Dependence on other enabling machines and devices; Z85.46 Personal history of malignant neoplasm of prostate; Z85.830 Personal history of malignant neoplasm of bone; Z28.310 Unvaccinated for COVID-19; Z28.9 Immunization not carried out for unspecified reason; Z87.891 Personal history of nicotine dependence; Z88.8 Allergy status to other drugs, medicaments and biological substances
CPT/HCPCS: 82962; 87635